=== PATIENT | male | born 2000 | race Two or more races ===

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

== ENCOUNTER 2019-04-21 19:03 | Emergency (ER) | payer BC ==
[2019-04-21] MEDS ORDERED: Adacel (T-DAP) 0.5 ML SYRINGE ONE (20:37)
== END 2019-04-21 20:55 | disposition home or self-care (01) ==
LOC: MADERS 19:03
DX: F41.9 Anxiety disorder, unspecified (principal); J45.909 Unspecified asthma, uncomplicated
CPT/HCPCS: 90471; 90715

== ENCOUNTER 2022-07-01 07:44 | Emergency (ER) | payer BC, SELFPAY ==
[2022-07-01 08:29] LABS: #Basophils 0.1 thou/uL (0.0-0.2); #Eosinphils 0.2 thou/uL (0.0-0.7); #Lymphocytes 4.1 thou/uL (1.20-3.40); #Monocytes 0.8 thou/uL (0.11-0.59); #Neutrophils 3.8 thou/uL (1.40-6.50); %Basophils 1.3 % (0.0-1.0); %Eosinophils 2.1 % (0.0-10.0); %Lymphocytes 45.7 % (21.0-51.0); %Monocytes 8.6 % (0.0-10.0); %Neutrophils 42.3 % (42.0-75.0); Hemoglobin 16.8 g/dL (14.0-18.0); Mean Corpuscular HGB CONC 33.8 g/dL (32.0-36.0); Mean Corpuscular Volume 85.6 fl (78.0-98.0); Mean Platelet Volume 11.2 fL (7.4-10.4); Platelet Count 209 10x3/uL (130-400); RBC Distribution Width 11.8 % (11.5-14.5); Red Blood Cell (RBC) Count 5.81 mill/uL (4.70-6.10); White Blood Cell (WBC) Count 9.1 10x3/uL (4.8-10.8)
[2022-07-01 08:43] LABS: ALT (SGPT) 13 U/L (8-55); AST (SGOT) 16 U/L (5-34); Albumin 4.8 g/dL (3.5-5.0); Alkaline Phosphatase 66 U/L (40-110); Anion Gap 16 mmol/L (10-20); BUN (Urea Nitrogen) 9 mg/dL (8.9-20.6); Bilirubin, Total 0.8 mg/dL (0.2-1.2); Calc. Creatinine Clearance 0 mL/min (70-130); Calcium 9.7 mg/dL (7.8-10.44); Carbon Dioxide 24 mmol/L (22-29); Chloride 106 mmol/L (98-107); Estimated GFR 108; Globulin 2.9 g/dL (2.4-3.5); Glucose 93 mg/dL (70-105); Potassium 3.6 mmol/L (3.5-5.1); Protein, Total 7.7 g/dL (6.0-8.3); Sodium 142 mmol/L (136-145)
[2022-07-01 09:52] LABS: Magnesium 2.2 mg/dL (1.6-2.6)
[2022-07-01] MEDS ORDERED: Ketamine 50 MG/ML (10ML VIAL) ONE (11:11)
== END 2022-07-01 11:27 | disposition home or self-care (01) ==
LOC: MADERS 07:44
DX: I48.91 Unspecified atrial fibrillation (principal); J45.909 Unspecified asthma, uncomplicated; Z79.899 Other long term (current) drug therapy
CPT/HCPCS: 71045; 80053; 83735; 83880; 84443; 84484; 85025; 92960; 93005; 99152; 99153

== ENCOUNTER 2023-03-18 03:45 | Emergency (ER) | payer OTHER, SELFPAY ==
[2023-03-18] MEDS ORDERED: Acetaminophen 500 MG TAB ONE (04:22)
== END 2023-03-18 06:45 | disposition home or self-care (01) ==
LOC: MADERS 03:45
DX: U07.1 COVID-19 (principal); J45.909 Unspecified asthma, uncomplicated; Z79.51 Long term (current) use of inhaled steroids
CPT/HCPCS: 87081; 87430; 87635; 87804; 99283